=== PATIENT | male | born 1970 | race Caucasian/White ===

== ENCOUNTER 2021-08-23 11:00 | Observation (INO) | payer OTHER ==
[2021-08-23] VITALS (8 sets, daily range): BP systolic 120–152; BP diastolic 55–82; PULSE 65–71; TEMP 98.2–98.8
[~2021-08-23] VITALS: Ht 177.8 cm; Wt 136.2 kg
[2021-08-23 11:55] LABS: COLLECTION METHOD CLEAN CATCH
[2021-08-23 12:02] LABS: MUCOUS Present /lpf; PH 6 (5-8); SQUAMOUS EPITHELIAL None Seen /hpf; URINE APPEARANCE Clear; URINE BACTERIA None Seen /hpf; URINE BILIRUBIN Negative (NEGATIVE); URINE BLOOD Negative (NEGATIVE); URINE COLOR Yellow; URINE GLUCOSE 3+ (NEGATIVE); URINE KETONE Trace (NEGATIVE); URINE LEUKOCYTE ESTERASE Negative (NEGATIVE); URINE NITRATE Negative (NEGATIVE); URINE PROTEIN(semi-quant) Negative (NEGATIVE); URINE UROBILINOGEN >=4.0 mg/dL (NEGATIVE)
[2021-08-23 12:08] LABS: BASO % 0.3 % (0.0-2.0); EOS % 0.8 % (0-4.0); GRAN # 2.3 K/mm3 (1.4-6.5); GRAN % 58.7 % (42.2-75.2); HEMOGLOBIN 12.5 g/dl (13.5-18.0); LYMPH # 1.2 K/mm3 (1.2-3.4); LYMPH % 30.5 % (20.0-51.0); MEAN CELL VOLUME 87 fl (80.0-100.0); MEAN CORPUSCULAR HEMOGLOBIN 30 pg (27.0-31.0); MEAN CORPUSCULAR HGB CONC 35 g/dl (33.0-37.0); MEAN PLATELET VOLUME 12.6 fl (7.4-10.4); MONO # 0.4 K/mm3 (0.1-0.6); MONO % 9.4 % (1.7-9.3); PLATELET COUNT 55 K/mm3 (130-400); RED BLOOD COUNT 4.14 M/mm3 (4.20-5.60); REDCELL DISTRIBUTION WIDTH-CV 13.1 % (11.5-14.5)
[2021-08-23 12:12] LABS: HEMATOCRIT 36.2 % (42.0-52.0)
[2021-08-23 12:15] LABS: ALBUMIN 2.7 gm/dL (3.5-5.0); BILIRUBIN,TOTAL 1.9 mg/dL (0.2-1.2); C-REACTIVE PROTEIN 0.21 mg/dL (0.00-0.50); CALCIUM 8.8 mg/dL (8.4-10.2); CREATININE, serum 0.66 mg/dL (0.72-1.25); POTASSIUM 4.6 mmol/L (3.5-4.5); TOTAL PROTEIN 6.2 gm/dL (6.2-8.1)
[2021-08-23 12:45] LABS: INR 1.7 (0.8-3.0); PROTHROMBIN TIME 18.9 SECONDS (9.7-12.8)
[2021-08-23] MEDS ORDERED: FOLIC ACID 11 MG/TA1 PO (13:59)
[2021-08-23] MEDS ORDERED: VITAMIN D31000 I1 PO (14:00)
[2021-08-23] MEDS ORDERED: ALDACTONE50 MG PO (14:00)
[2021-08-23] MEDS ORDERED: PROTONIX 40MG T40 MG PO (14:01)
[2021-08-23] MEDS ORDERED: INDERAL 10MG10 MG PO (14:02)
[2021-08-23] MEDS ORDERED: INDERAL 20MG20 MG PO (14:02)
[2021-08-23] MEDS ORDERED: VITAMIN A10k PO (14:03)
[2021-08-23] MEDS ORDERED: GLUCOPHAGE1000 MG PO (14:04)
--- NOTE | 2021-08-23 15:33 | NUR ---
PT ADMITTED TO THE UNIT. ADMISSION INTAKE AND ASSESSMENT COMPLETED AT THIS TIME. PT HAS BEEN NPO SINCE 0900 TODAY. EGD CONSENT SIGNED AND PLACED ON CHART, WAITING TO BE TAKEN DOWN. PT HAS NO NEEDS, CONTINUING TO MONITOR.
--- NOTE | 2021-08-23 21:00 | NUR ---
Patient is resting in bed, alert and oriente x 4, VSS, reports discomfort in abdomen, some tenderness, refuses pain medication. Fluids runnint at 50 ml per hr. Tolerating clear liquids. Still with post op VS checks. Assessment completed, no further needs at this time. Call light within reach.
[2021-08-23 22:42] LABS: HEMATOCRIT 35.4 % (42.0-52.0); HEMOGLOBIN 12.2 g/dl (13.5-18.0)
[2021-08-24] VITALS (7 sets, daily range): BP systolic 110–133; BP diastolic 54–69; PULSE 67–77; TEMP 98–98.6
--- NOTE | 2021-08-24 06:14 | NUR ---
Patient has been stable but with problems sleeping. No stools or emesis. Tolerating diet. Shift report will be given to day RN.
[2021-08-24 06:54] LABS: BASO % 0.3 % (0.0-2.0); EOS % 1.4 % (0-4.0); GRAN # 1.6 K/mm3 (1.4-6.5); GRAN % 52.7 % (42.2-75.2); HEMOGLOBIN 11.3 g/dl (13.5-18.0); LYMPH % 34.8 % (20.0-51.0); MEAN CELL VOLUME 86 fl (80.0-100.0); MEAN CORPUSCULAR HEMOGLOBIN 30 pg (27.0-31.0); MEAN CORPUSCULAR HGB CONC 35 g/dl (33.0-37.0); MEAN PLATELET VOLUME 13.3 fl (7.4-10.4); MONO # 0.3 K/mm3 (0.1-0.6); MONO % 10.5 % (1.7-9.3); RED BLOOD COUNT 3.73 M/mm3 (4.20-5.60); REDCELL DISTRIBUTION WIDTH-CV 13.1 % (11.5-14.5)
[2021-08-24 06:55] LABS: HEMATOCRIT 32.2 % (42.0-52.0)
[2021-08-24 06:56] LABS: PLATELET COUNT 44 K/mm3 (130-400)
[2021-08-24 06:59] LABS: INR 1.8 (0.8-3.0); PROTHROMBIN TIME 19.7 SECONDS (9.7-12.8)
[2021-08-24 07:14] LABS: CREATININE, serum 0.67 mg/dL (0.72-1.25); MAGNESIUM 1.7 mg/dL (1.6-2.6)
--- NOTE | 2021-08-24 07:34 | NUR ---
DASHA BENEDICT NOTIFIED OF CRITICAL LAB VALUE, PLATELETS LOW AT 44.
--- NOTE | 2021-08-24 11:36 | NUR ---
PAULINA met with the patient to discuss discharge plan. The patient lives alone in [place]. He reports independence with ADLs and does not have any DME. The patient's PCP is Dr. Lopez Caal at the [facility] and he receives his medications from [facility]. He reports no difficulties obtaining his meds. The patient does not have a DPOA-HC, but he was interested in obtaining a form. PAULINA provided. The patient states that he is , has one child that is [id number], and that his mother is . His father, Ronny, is his next of kin. He would like his step-mother/Ronny's , Zana (ph#[phone]), listed as his person to contact. The patient plans to return home upon discharge. No additional needs at this time. *Discharge plan: home*
--- NOTE | 2021-08-24 11:57 | NUR ---
PT ALERT AND ORIENTED. PT ABLE TO AMBULATE INDEPENDENTLY. PT REPORTS 2-3 ON BACK THAT IS INCREASED WITH MOVEMENT. REQUESTING LIDOCAINE PATCH FOR BACK. PT HAS DIMINISHED BASES BILATERALLY. PT CALL LIGHT WITHIN REACH. PT AHS BILATERAL LOWER EDEMA 1+, PT AWARE STATES IT HAS BEEN CHRONIC CONDITION.
--- NOTE | 2021-08-24 12:00 | NUR ---
MICH [phone] FROM [place] CALLED REGARDING UPDATES AND DISCHARGE PLAN.
--- NOTE | 2021-08-24 18:37 | NUR ---
PT CONTINUING ON PLAN OF CARE. PT REPORTING PAIN IN BACK WHILE IN BED, LIDOCAINE PATCH ORDERED TO HELP MANAGE. PT VITAL SIGNS REMAINED STABLE THIS SHIFT. PT ABLE TO AMBULATE INDEPENDENTLY IN ROOM. PT CONTINUES ON IV MEDICATION PER ORDERS. NO SIGNIFICANT CHANGES NOTED IN PT STATUS THIS SHIFT.
--- NOTE | 2021-08-24 21:00 | NUR ---
Patient is resting in bed after a shower. Alert and oriented, VSS, reports pain in the lower back. Lidocaine patch provided. No nausea or vomiting. Continues with octeotride infusion treatment. Assesment completed, medications provided. No further needs at this time. Call light within reach.
[2021-08-25 03:43] VITALS: BP 131/68; PULSE 74; TEMP 98.7
[2021-08-25 06:41] LABS: HEMOGLOBIN 10.8 g/dl (13.5-18.0); MEAN CELL VOLUME 87 fl (80.0-100.0); MEAN CORPUSCULAR HEMOGLOBIN 30 pg (27.0-31.0); MEAN CORPUSCULAR HGB CONC 34 g/dl (33.0-37.0); MEAN PLATELET VOLUME 13.8 fl (7.4-10.4); RED BLOOD COUNT 3.64 M/mm3 (4.20-5.60); REDCELL DISTRIBUTION WIDTH-CV 12.9 % (11.5-14.5)
[2021-08-25 06:46] LABS: HEMATOCRIT 31.5 % (42.0-52.0)
[2021-08-25 06:47] LABS: PLATELET COUNT 41 K/mm3 (130-400)
[2021-08-25 07:00] VITALS: BP 132/64; PULSE 76; TEMP 98.3
[2021-08-25 07:00] LABS: ALBUMIN 2.4 gm/dL (3.5-5.0); BILIRUBIN,TOTAL 1.6 mg/dL (0.2-1.2); CALCIUM 7.9 mg/dL (8.4-10.2); CREATININE, serum 0.65 mg/dL (0.72-1.25); POTASSIUM 3.7 mmol/L (3.5-4.5); TOTAL PROTEIN 5.3 gm/dL (6.2-8.1)
--- NOTE | 2021-08-25 07:10 | NUR ---
Patient has had a calm night. All needs met. Shift report given to day shift nurse.
--- NOTE | 2021-08-25 07:19 | NUR ---
CRITICAL PLT LAB VALUE REPORTED TO DASHA BENEDICT. ALSO REPORTED DECREASE IN HGB
[2021-08-25] MEDS ORDERED: PROTONIX 40MG T40 MG PO (08:55)
--- NOTE | 2021-08-25 09:40 | NUR ---
NOTICED LOW SPO2 CHARTED AT 91% FOR 0800 VITAL SIGN COLLECTION. RECHECKED AT THIS TIME, SPO2 96%
--- NOTE | 2021-08-25 10:01 | NUR ---
PT ALERT AND ORIENTED. PT HAS 1+ EDEMA IN BILATERAL LOWER EXTREMITIES. PT AWARE AND AMBULATION IN PLATT ENCOURAGED. PT DENIES WANTING TO WALK IN PLATT STATING "I WALK AROUND IN HERE, I'D RATHER STAY AWAY FROM OTHER PEOPLE" PT HAS ACTIVE BOWEL SOUNDS. PT IS INDEPENDENT IN ROOM. PT STATES SLIGHT BURNING WITH SWALLOWING ROUGH FOODS, DR. GONZALEZ PRESENT AT TIME. PT DENIES OTHER NEEDS, EXPRESSES EXCITEMENT TO GO HOME.
--- NOTE | 2021-08-25 10:15 | NUR ---
NOTIFIED DR. YARBROUGH OF PT CLEARED BY HOSPITALIST TO DISCHARGE. INQUIRED ABOUT DISCONTINUING OCREOTIDE GTT. RECEIVED TELEPHONE ORDERS TO DISCONTINUE IV MEDICATION AND OKAY TO DISCHARGE AT THIS TIME.
--- NOTE | 2021-08-25 10:30 | NUR ---
First visit from the activated sludge attendant. No needs right now.
--- NOTE | 2021-08-25 10:33 | NUR ---
Pt discharge education and health summary provided to best of ability. Pt IV fluids discontinued. Pt IV discontinued. Pt ambulatory, to be walked out by [facility] employee.
--- NOTE | 2021-08-25 14:18 | NUR ---
Primary nurse was assisted with [id number] patient care by [employer] Henny Villarreal and [employer] instructor Cate Del Cid MSN, RN
== END 2021-08-25 10:45 | disposition home or self-care (01) ==
LOC: COL.ER 11:00 → MEDICAL 12:53
PROVIDERS: Family Medicine; Physician Assistant; ADMIT Internal Medicine
DX: I85.10 Secondary esophageal varices without bleeding (principal); K31.84 Gastroparesis; K26.7 Chronic duodenal ulcer without hemorrhage or perforation; K92.1 Melena; K74.60 Unspecified cirrhosis of liver; D69.6 Thrombocytopenia, unspecified; K21.9 Gastro-esophageal reflux disease without esophagitis; K72.90 Hepatic failure, unspecified without coma; I10 Essential (primary) hypertension; E11.9 Type 2 diabetes mellitus without complications; K76.0 Fatty (change of) liver, not elsewhere classified; D64.9 Anemia, unspecified; Z79.84 Long term (current) use of oral hypoglycemic drugs; Z79.899 Other long term (current) drug therapy
CPT/HCPCS: 99232-AI; C9113; G0378; J1815; J2250; J2354; J2405; J2704; J7040; J7120

== ENCOUNTER 2022-05-09 08:19 | Day surgery (SDC) | payer OTHER ==
[~2022-05-09 08:19] MED LIST: ALDACTONE50 MG PO; FOLIC ACID 11 MG/TA1 PO; GLUCOPHAGE1000 MG PO; INDERAL 10MG10 MG PO; INDERAL 20MG20 MG PO; PROTONIX 40MG T40 MG PO; VITAMIN A10k PO; VITAMIN D31000 I1 PO
[2022-05-09] MEDS ORDERED: LANTUS100 U/ML SQ (10:25)
[2022-05-09] MEDS ORDERED: NOVOLOG 100U100 U/M1 SQ (10:27)
[2022-05-09] MEDS ORDERED: INDERAL60 MG PO (10:29)
[2022-05-09] MEDS ORDERED: KRISTALOSE10 GM/PACK (10:33)
[2022-05-09 11:15] VITALS: BP 117/80; PULSE 68; TEMP 97.6
--- NOTE | 2022-05-09 11:23 | NUR ---
1115 - PT arrives and ambulated from cart to chair 2:1; gait is steady. PT shoes are on; monitors and warm blankets applied. PT denies nasuea and pain. No vomiting. VSS. PT provided applesauce and ice water per request. PT oriented to room and call wu, within reach. Verbal room report obtained from KAUSHIK Yee. Will monitor per intervals.
--- NOTE | 2022-05-09 11:25 | NUR ---
1120 - PT states blood sugar is 118 from contineous monitoring.
[2022-05-09 11:30] VITALS: BP 121/66; PULSE 63
--- NOTE | 2022-05-09 11:37 | NUR ---
1130 - VSS. PT expressed desire to be discharged. PT requsted RN call ride. Call wu remains within reach. PT has finished snack and drink; denies nausea and pain. Awaiting DR to speak with PT.
[2022-05-09 11:45] VITALS: BP 122/70; PULSE 66
--- NOTE | 2022-05-09 11:52 | NUR ---
1145 - VSS. IV discontinued. Catheter tip intact. Pressure bandage applied. No redness or swelling noted. DC instructions and educational material reviewed with the PT who verbalized understanding and signed the related paperwork. PT refused RN assistance changing. has spoken with the PT. Call wu remains within reach.
--- NOTE | 2022-05-09 12:03 | NUR ---
1200 - PT dismissed from endo via wheelchair to the PT entrence by Annabelle FAULKNER. PT has DC packet and personal belongings, and was transferred into the care of Zana, who is driving private car.
== END 2022-05-09 12:05 | disposition home or self-care (01) ==
LOC: SDCO 08:19
DX: I85.01 Esophageal varices with bleeding (principal); K29.30 Chronic superficial gastritis without bleeding
CPT/HCPCS: J2704; J7030

== ENCOUNTER 2024-03-03 06:44 | Day surgery (SDC) | payer OTHER ==
[~2024-03-03] VITALS: Ht 177.8 cm; Wt 138.1 kg
[~2024-03-03 06:44] MED LIST changes: +CIPRO 500MG TA500 MG PO; +INDERAL60 MG PO; +KRISTALOSE10 GM/PACK PO; +LANTUS100 U/ML SQ; +LR 1,000 ML IV SCH; +NOVOLOG 100U100 U/M1 SQ; +Ondansetron 4 MG/2 ML VIAL IV PRN
[2024-03-03 08:03] VITALS: BP 142/66; PULSE 60; TEMP 98
[2024-03-03] MEDS ORDERED: INDERAL80 MG PO (08:07)
[2024-03-03] MEDS ORDERED: VTAMINC250TA (08:09)
[2024-03-03] MEDS ORDERED: FERROUS GL325 MG/TAB (08:10)
[2024-03-03] MEDS ORDERED: XIFAXAN550 MG PO (08:11)
[2024-03-03] MEDS ORDERED: Lidocaine PF 2% (20 MG/ML) 5 ML VIAL ONE (08:29)
[2024-03-03 08:50] VITALS: BP 108/48; PULSE 57; TEMP 97.5
--- NOTE | 2024-03-03 08:50 | NUR ---
PATIENT RETURNS TO ROOM 1 VIA CART. ASSIST TO CHAIR X 1. VITAL SIGNS WNL. HE IS ALERT AND ABLE TO ANSWER QUESTIONS. REQUESTS SPRITE AND A MUFFIN. I CALLED HIS DAD TO LET HIM KNOW PATIENT WILL BE READY FOR DISCHARGE IN ABOUT HALF AN HOUR. CALL LIGHT WITHIN REACH. WILL CONTINUE TO MONITOR.
[2024-03-03 09:05] VITALS: BP 113/70; PULSE 59
--- NOTE | 2024-03-03 09:05 | NUR ---
PATIENT IS DOING WELL. DENIES ANY PAIN OR NAUSEA AFTER EATING AND DRINKING. IV DISCONTINUED. VITAL SIGNS ARE NORMAL. WILL CONTINUE TO MONITOR.
[2024-03-03 09:19] VITALS: BP 112/55; PULSE 57
--- NOTE | 2024-03-03 09:19 | NUR ---
PATIENT IS READY FOR DISCHARGE. PHYSICIAN AT BEDSIDE. LAST SET OF VITALS WNL. DISCHARGE INSTRUCTIONS REVIEWED. WILL DISCHARGE ONCE PATIENT IS DRESSED VIA WHEELCHAIR.
== END 2024-03-03 09:30 | disposition home or self-care (01) ==
LOC: SDCO 06:44
DX: I85.00 Esophageal varices without bleeding (principal); G47.33 Obstructive sleep apnea (adult) (pediatric); K31.89 Other diseases of stomach and duodenum; K76.6 Portal hypertension; E66.9 Obesity, unspecified
CPT/HCPCS: J2704; J7120

== ENCOUNTER 2024-06-16 11:15 | Emergency (ER) | payer OTHER ==
[~2024-06-16] VITALS: Ht 177.8 cm; Wt 140.9 kg
[~2024-06-16 11:15] MED LIST changes: +FERROUS GL325 MG/TAB; +INDERAL80 MG PO; -LR 1,000 ML IV SCH; -Ondansetron 4 MG/2 ML VIAL IV PRN; +VTAMINC250TA; +XIFAXAN550 MG PO
[2024-06-16 11:22] VITALS: TEMP 98.2
[2024-06-16 12:13] LABS: BASO % 0.5 % (0.0-2.0); EOS # 0.1 K/mm3 (0.0-0.7); GRAN # 2.7 K/mm3 (1.4-6.5); GRAN % 66.9 % (42.2-75.2); HEMOGLOBIN 10.8 g/dl (13.5-18.0); LYMPH # 0.8 K/mm3 (1.2-3.4); LYMPH % 20.3 % (20.0-51.0); MEAN CELL VOLUME 97 fl (80.0-100.0); MEAN CORPUSCULAR HEMOGLOBIN 33 pg (27-31); MEAN CORPUSCULAR HGB CONC 34 g/dl (33.0-37.0); MEAN PLATELET VOLUME 11.6 fl (7.4-10.4); MONO # 0.4 K/mm3 (0.1-0.6); MONO % 9.8 % (1.7-9.3); PLATELET COUNT 53 K/mm3 (130-400); RED BLOOD COUNT 3.28 M/mm3 (4.20-5.60); REDCELL DISTRIBUTION WIDTH-CV 14.2 % (11.5-14.5)
[2024-06-16 12:14] LABS: HEMATOCRIT 31.7 % (42.0-52.0)
[2024-06-16 12:18] LABS: INR 1.8 (0.8-3.0)
[2024-06-16 12:24] LABS: ALBUMIN 2.3 g/dL (3.5-5.0); BILIRUBIN,TOTAL 2.2 mg/dL (0.2-1.2); CALCIUM 8.2 mg/dL (8.4-10.2); CREATININE, serum 0.68 mg/dL (0.72-1.25); POTASSIUM 3.6 mEq/L (3.5-4.5); TOTAL PROTEIN 5.9 g/dl (6.2-8.1)
[2024-06-16 13:00] VITALS: BP 124/63; PULSE 62
== END 2024-06-16 13:00 | disposition home or self-care (01) ==
LOC: COL.ER 11:15
PROVIDERS: Personal Emergency Response Attendant
DX: K74.60 Unspecified cirrhosis of liver (principal); D69.6 Thrombocytopenia, unspecified

== ENCOUNTER 2024-07-07 13:17 | Emergency (ER) | payer OTHER ==
[~2024-07-07] VITALS: Ht 177.8 cm; Wt 154.5 kg
[2024-07-07 13:22] VITALS: TEMP 98.3
[2024-07-07 17:42] VITALS: BP 143/67; PULSE 67
== END 2024-07-07 17:42 | disposition home or self-care (01) ==
LOC: COL.ER 13:17
DX: R06.02 Shortness of breath (principal)

== ENCOUNTER 2024-07-19 13:07 | Emergency (ER) | payer OTHER ==
[~2024-07-19] VITALS: Ht 177.8 cm; Wt 155.0 kg
[2024-07-19 14:29] LABS: BASO % 0.4 % (0.0-2.0); EOS # 0.1 K/mm3 (0.0-0.7); EOS % 1.8 % (0.0-4.0); GRAN # 5.1 K/mm3 (1.4-6.5); GRAN % 65.2 % (42.2-75.2); HEMOGLOBIN 9.6 g/dl (13.5-18.0); LYMPH # 1.7 K/mm3 (1.2-3.4); LYMPH % 21.7 % (20.0-51.0); MEAN CELL VOLUME 95 fl (80.0-100.0); MEAN CORPUSCULAR HEMOGLOBIN 33 pg (27-31); MEAN CORPUSCULAR HGB CONC 34 g/dl (33.0-37.0); MEAN PLATELET VOLUME 11.7 fl (7.4-10.4); MONO # 0.8 K/mm3 (0.1-0.6); MONO % 10.3 % (1.7-9.3); PLATELET COUNT 94 K/mm3 (130-400); RED BLOOD COUNT 2.95 M/mm3 (4.20-5.60); REDCELL DISTRIBUTION WIDTH-CV 14.2 % (11.5-14.5)
[2024-07-19 14:30] LABS: HEMATOCRIT 27.9 % (42.0-52.0)
[2024-07-19 14:40] LABS: INR 2.1 (0.8-3.0); PROTHROMBIN TIME 22.1 SECONDS (9.7-12.8)
[2024-07-19 14:41] LABS: ALBUMIN 2.1 g/dL (3.5-5.0); BILIRUBIN,TOTAL 2.5 mg/dL (0.2-1.2); C-REACTIVE PROTEIN 1.75 mg/dL (0.00-0.50); CREATININE, serum 0.68 mg/dL (0.72-1.25); POTASSIUM 3.4 mEq/L (3.5-4.5); TOTAL PROTEIN 5.8 g/dl (6.2-8.1)
[2024-07-19] MEDS ORDERED: Iohexol 300 - 100 ML VIAL IV ONE (15:43)
[2024-07-19] MEDS ORDERED: NS 100 ML IV ONE (15:44)
[2024-07-19] MEDS ORDERED: Pantoprazole 40 MG in NS 10 ML IV ONE (19:00)
[2024-07-19 21:40] VITALS: BP 120/48; PULSE 68; TEMP 98.2
== END 2024-07-19 21:40 | disposition short-term general hospital (02) ==
LOC: COL.ER 13:07
PROVIDERS: Emergency Medicine
DX: K72.10 Chronic hepatic failure without coma (principal); R18.8 Other ascites; K92.2 Gastrointestinal hemorrhage, unspecified
CPT/HCPCS: J2470; Q9967